=== PATIENT | female | born 1980 | race Caucasian/White ===

== ENCOUNTER → 2019-09-26 | Outpatient (CLI) | payer OTHER ==
--- NOTE | 2019-09-26 13:37 | RADIOLOGY REPORT (SQ) ---
EXAM DESCRIPTION: U/S THYROID/SFT TISS HD NECK IMAGES COMPLETED DATE/TIME: 09/26/2019 11:38 am REASON FOR STUDY: GOITER (E04.9) E04.9 NONTOXIC GOITER, UNSPECIFIED J32.9 CHRONIC SINUSITIS, UNSPE CIFIED COMPARISON: None. TECHNIQUE: Dynamic and static culver-scale images acquired of the thyroid gland. Selected additional c olor/power Doppler images recorded. All images stored to PACS. LIMITATIONS: None. FINDINGS: RIGHT LOBE: Prominent. Homogeneous echotexture. Incidental note is made of 2 45 mm collo id cysts. LEFT LOBE: Prominent. Homogeneous echotexture. Incidental note is made of a single 3 mm colloid cys t. ISTHMUS: Normal size. Homogeneous echotexture. No cystic or solid masses. OTHER: No other significant finding. IMPRESSION: Mildly prominent thyroid without nodules or hyperemia. TECHNICAL DOCUMENTATION: JOB ID: [id number] 2010 [employer]- All Rights Reserved Reading location - IP/workstation name: [email or web address]
== END ==
LOC: RAD 09:55
PROVIDERS: ATTEND Otolaryngology
DX: E04.9 Nontoxic goiter, unspecified (principal); J32.9 Chronic sinusitis, unspecified
CPT/HCPCS: 70486; 76536

== ENCOUNTER 2019-11-19 10:40 | Day surgery (SDC) | payer OTHER ==
[~2019-11-19 10:40] MED LIST: CEFAZOLIN 2 GM/D5W RTU 2 GM/50 ML RTUPB IV PRN
[2019-11-19] MEDS ORDERED: ONDANSETRON HCL INJ/PF 4 MG/2 ML SDV ONE ×2 (11:29→14:56)
[2019-11-19] MEDS ORDERED: DEXAMETHASONE SOD PHOSPHATE INJ 4 MG/1 ML VIAL ONE (11:29)
[2019-11-19] MEDS ORDERED: FENTANYL CITRATE INJ/PF 250 MCG/5 ML AMPULE ONE (11:29)
[2019-11-19] MEDS ORDERED: MIDAZOLAM 2 MG/2 ML INJ ONE (11:29)
[2019-11-19] MEDS ORDERED: SUCCINYLCHOLINE CHLORIDE INJ 200 MG/10 ML VIAL ONE (11:30)
[2019-11-19] MEDS ORDERED: PROPOFOL INJ 200 MG/20 ML VIAL IV ONE ×2 (11:30→12:12)
[2019-11-19] MEDS ORDERED: COCAINE HCL 4% TOPICAL SOLN 4 ML ONE (11:50)
[2019-11-19] MEDS ORDERED: OXYMETAZOLINE HCL 0.05% NASAL SPRAY 15 ML BOTTLE ONE (11:50)
[2019-11-19] MEDS: LIDOCAINE 2%/EPINEPHRINE INJ 1.7 ML CARTRIDGE ONE ×2 (12:25→14:00)
[2019-11-19] MEDS: TRIAMCINOLONE ACETONIDE INJ 40 MG/1 ML VIAL ONE ×2 (14:07)
[2019-11-19] MEDS: BACITRACIN ZINC OINTMENT 15 GM ONE ×2 (14:15)
[2019-11-19] MEDS ORDERED: PROMETHAZINE HCL INJ 25 MG/1 ML VIAL ONE (14:56)
[2019-11-19] MEDS ORDERED: ONDANSETRON 4 MG TAB.RAPDIS ONE (14:58)
[2019-11-19] MEDS: HYDROMORPHONE HCL INJ/PF 2 MG/ML AMPULE ONE ×2 (15:00→15:25)
--- NOTE | 2019-11-19 18:12 | Operative Report ---
Operative Report-[facility] Operative Report: Date: 19 November 2019 History: 39-year-old female with a history of chronic sinusitis, nasal septal deformity, nasal vestibular stenosis and inferior turbinate hypertrophy, presents for a endoscopic sinus surgery, septoplasty, repair nasal vestibular stenosis and inferior turbinate reduction. Informed consent was obtained from the patient. Preoperative Diagnosis: 1. Chronic Sinusitis, bilateral 2. Deviated Nasal Septum 3. Nasal vestibular stenosis, bilateral 4. Inferior turbinate hypertrophy, bilateral Postoperative Diagnosis: Same as above Procedure: 1. Maxillary antrostomy, right [CPT: 87244] 2. Maxillary antrostomy, left [CPT: 79718] 3. Total ethmoidectomy, right [CPT: 85551] 4. Total ethmoidectomy, left [CPT: 70102] 5. Nasal septoplasty [CPT: 61758] 6. Inferior turbinate reduction, right side [CPT: 26621] 7. Inferior turbinate reduction, left side [CPT: 67171] 8. Repair nasal vestibular stenosis, right side (CPT: 10976) 9. Repair nasal vestibular stenosis, left side (CPT: 53666) Surgeon: Tdod Pickens MD, FACS, [facility] Anesthesia: GETA Description of the procedure: After receiving informed consent, the patient was taken to the operating room and placed supine on the operating table. After successful induction and intubation by anesthesia, cottonoids saturated with 4% cocaine were placed into each nasal cavity. After 5 minutes they were removed and the nasal septum along with the inferior turbinates, middle turbinates and lateral nasal wall were injected with 2% Xylocaine with 1-100,000 epinephrine. The 4% cocaine cottonoids were then placed back into each nasal cavity. The patient was then prepped and draped in a sterile fashion. The image guidance system was then calibrated to the patient and found to be functioning normally. Attention was directed to the septoplasty portion of the procedure. The cottonoids were removed from the nasal cavity. A number 15 blade was used to make a becky transfixtion incision on the left side. Next using a Villar and then A Garfield elevator, a mucoperichondrial/mucoperiosteal flap was elevated back to the sphenoid rostrum. This was then elevated onto the nasal floor. A mucoperichondrial flap was elevated around the caudal edge of the septum and onto the right side. This exposed both sides of the cartilaginous septum. The osseocartilaginous junction was and a mucoperiosteal flap was elevated on the right side. Rhodes scissors were used to make horizontal cuts in the perpendicular plate of the ethmoid bone, superiorly and inferiorly. Silvano-Quiroga forceps were used to remove this. A vomeroethmoid spur was identified and the mucosa was carefully dissected from it. A V-chisel was used to remove this spur. An inferior cartilage spur was removed using a D knife . Maxillary crest spur was removed using a V chisel. Michael-Quiñones's were used to remove a high septal deflection in the area of the internal nasal valve. The septum was viewed with the flaps in place and found to be relatively straight. The middle turbinates were visible on both sides. The becky transfixion incision was closed using 4-0 chromic and a 4-0 plain gut whip stitch was used to secure the septal flaps. Attention was then directed to the endoscopic sinus surgery portion of the proc edure. The rigid nasal endoscope was then inserted into the left nasal cavity and the middle turbinate was visualized and medialized using a freer elevator. A seeker was placed into the infundibulum and the uncinate process was displaced anteriorly. A sickle knife was used to make an incision along the lateral portion of the uncinate process. An uncinectomy was accomplished using the microdebrider and Blakesley forceps. An olive-tipped sucker was used to gain entrance into the maxillary sinus through the natural os. The antrostomy is widened anteriorly using backbiters and then using microdebrider and Blakesley forceps it was widened inferiorly and posteriorly. The mucosa of the maxillary sinus was identified and found to be normal. A total ethmoidectomy was performed using Blakesley forceps and the microdebrider. A cottonoid saturated with Afrin was then placed into the middle meatus. Attention was then directed to the right side where in a similar fashion a maxillary antrostomy and total ethmoidectomy were performed. Attention was then directed to the nasal valve area on the right, where the Aentropico nasal airway remodeling system was used to repair the nasal vestibular st enosis. The handpiece was placed superiorly at the caudal margin of the upper lateral cartilage and the device was activated. This was repeated 2 more times marching inferiorly towards the piriform aperture. A similar procedure was done on the left. Attention was then directed to the inferior turbinates. Inferior turbinate reduction was performed using the Briligon turbinate system and the turbinate microdebrider. Intramural cauterization along with removal of submucosal tissue using the microdebrider was performed on the left inferior turbinate and then this turbinate was medialized and lateralized using a Sayer elevator. The procedure was done on the right side. Silicon splints coated with bacitracin were placed into each nasal cavity and secured with a 2-0 prolene. The cottonoid was then removed from the left middle meatus and keeping the middle turbinate medialized an absorbable pack was placed into the middle meatus. A similar procedure was performed on the right side. The packing was then infiltrated with Kenalog 40. The patient was then given back to anesthesia who successfully extubated the patient without any complications. Estimated blood loss: 25 mL Fluids: 1800 mL The patient was then transported to the postanesthesia care unit in stable condition with spontaneous respirations. No complications.
== END 2019-11-19 16:00 | disposition home or self-care (01) ==
LOC: SC 10:40
PROVIDERS: ATTEND Otolaryngology
DX: J34.2 Deviated nasal septum (principal); J32.9 Chronic sinusitis, unspecified; J34.3 Hypertrophy of nasal turbinates; J34.89 Other specified disorders of nose and nasal sinuses; E88.81 Metabolic syndrome and other insulin resistance; E04.9 Nontoxic goiter, unspecified; J30.9 Allergic rhinitis, unspecified; F41.9 Anxiety disorder, unspecified; Z79.51 Long term (current) use of inhaled steroids; H61.22 Impacted cerumen, left ear; R06.83 Snoring; E66.9 Obesity, unspecified; Z03.818 Encounter for observation for suspected exposure to other biological agents ruled out
CPT/HCPCS: 87635; 30520; 31255; 31256; 30140; J2250; J3490 ×3; C9046; J1100; S0119; J3010; J1170; J2550; J0330; J2405; J3301; J2704; J0690; C9803; 160